=== PATIENT | male | born 1995 | race Caucasian/White ===

== ENCOUNTER 2021-04-26 02:33 | Emergency (ER) | payer BC, SELFPAY ==
[2021-04-26 02:34] VITALS: BP 130/83; PULSE 96; RESP 18; TEMP 37.4; O2SAT 97; BMI 40.4
--- NOTE | 2021-04-26 02:36 | RAD_ITS ---
EXAM: XR LEFT FOOT COMPLETE, 3 OR MORE VIEWS CLINICAL INDICATION: TRAUMA TRAUMA TECHNIQUE: Frontal, lateral and oblique views of the left foot. This report was created using meets report generation technology. COMPARISON: None. FINDINGS: BONES/JOINTS: There are foci of cortical discontinuity along the superior and medial aspects of the metaphysis of the distal phalanx of the first toe. There is questionable identification of fracture line extending to the articular surface at the interphalangeal joint. No sclerotic or destructive changes observed. SOFT TISSUES: Unremarkable. No soft tissue swelling or gas. No radiopaque foreign body. RAD/Foot min 3 Views IMPRESSION: Nondisplaced acute traumatic fracture through the medial corner of the distal phalanx of first toe, with intra-articular involvement at the interphalangeal joint. Electronically Signed: Omar Garcia MD at 3:07 EST Reading Location ID and State: [facility] / [place] , Service support ,
--- NOTE | 2021-04-26 03:39 | EX.ED.DYSGE1 ---
HPI History of Present Illness Chief Complaint: Lower Extremity Injury Narrative Narrative: Patient is a 25-year-old male who states he was hanging out with his friends when 1 fell and landed on his left foot. He states he had pain after the injury but reports he was able to go to bed but when he woke up and went to walk he noticed increased pain mainly in the left great toe. With concern he developed a fracture he presents for evaluation. Patient states he was barefoot at the time of injury and otherwise denies any other areas of injury. PFSH PFSH Medical History no medical history Home Medications hydrocodone-acetaminophen 1 tab PO Q6H PRN 3 Days #12 tab 04/26/21 [Rx Last Taken Unknown] Surgical History no surgical history Social History Smoking Status: Never smoker ROS ROS ED Constitutional Constitutional ED: Denies chills or fever(s) ENT ENT ED: Denies sore throat Cardiovascular Cardiovascular: Denies chest pain Respiratory/Chest Respiratory/Chest: Denies cough or dyspnea Gastrointestinal Gastrointestinal: Denies abdominal pain, diarrhea, nausea or vomiting Genitourinary Genitourinary ED: Denies dysuria Musculoskeletal Musculoskeletal: Reports other Details: Positive left foot pain ; Denies myalgias Integumentary Reports Abrasions; Denies rash Neurologic Neurologic: Denies headache(s) Hematologic/Lymphatic Hematologic/Lymphatic: Denies easy bleeding or easy bruising EXAM Physical Exam Const Vital Signs: 04/26/21 02:34 04/26/21 04:42 Temperature 99.4 F H Temperature Source Temporal Pulse Rate 96 78 Respiratory Rate 18 Blood Pressure 130/83 H 132/80 H Blood Pressure Mean 98 97 Pulse Ox 97 98 Oxygen Delivery Method Room Air Room Air Positive well nourished and well developed General Appearance ED: well developed Eyes PERRL and EOMs intact bilaterally Neck supple Resp normal respiratory effort and clear to auscultation bilaterally Cardio regular rate and regular rhythm Extremity Extremity Narrative: Left lower extremity is neurovascularly intact. Patient has soft tissue swelling with ecchymosis to the dorsal aspect of the left great toe. There is pain with palpation of the distal phalanx. No obvious bony deformity or joint effusion. No subungual hematoma noted. Remainder of the exam is normal Neuro oriented x3 and CN's II-XII intact bilaterally Sensorium / Orientation: alert Motor Exam: strength 5/5 throughout Psych mental status grossly normal Skin no rashes or lesions noted Skin Narrative: Soft tissue swelling ecchymosis to the left great toe as documented above MDM MDM MDM Narrative Medical decision making narrative: Patient presented to the ER with history and exam concerning for underlying bony injury. X-ray was obtained which did confirm a left great toe fracture. However the patient is closed and he is neurovascularly intact and he does not have any type of subungual hematoma. Therefore he can be given symptomatic care and discharged home and follow-up with podiatry to discuss need for any further treatment strategies. Radiography Diagnostic Testing: Clinical Impression(s) from Imaging Studies Foot X-Ray 04/26/21 02:36 IMPRESSION: Nondisplaced acute traumatic fracture through the medial corner of the distal phalanx of first toe, with intra-articular involvement at the interphalangeal joint. Electronically Signed: Omar Garcia MD at 3:07 EST Reading Location ID and State: [facility] / [place] , Service support , Discharge Plan Triage Chief Complaint: Lower Extremity Injury ED Provider: Edy Gutierrez Dx/Rx/DC Orders Clinical Impression: Closed fracture of left great toe Instructions: ED Fracture, Toe, Closed Prescriptions: New hydrocodone-acetaminophen 5-325 mg tablet 1 tab PO Q6H PRN (Reason: pain) 3 Days Qty: 12 RF: 0 Stand Alone Forms: ED Work / School Excuse Primary Care Provider: Care Physician,No Primary Referrals: Darren Roach DPM [STAFF PHYSICIAN] - 5-7 Days Care Physician,No Primary [Primary Care Provider] - Disposition Disposition: Home, Self Care Discharge Date/Time: 04/26/21 04:43
[2021-04-26] MEDS: HYDROcodone Bitartrate/Apap 5/325 Tablet PO (04:41)
[2021-04-26 04:42] VITALS: BP 132/80; PULSE 78; O2SAT 98
== END 2021-04-26 04:43 | disposition home or self-care (01) ==
PROVIDERS: Emergency Provider Emergency Medicine; Visit Provider Emergency Medicine
DX: S92.402A Displaced unspecified fracture of left great toe, initial encounter for closed fracture (principal); W19.XXXA Unspecified fall, initial encounter
CPT/HCPCS: 73630; 99284

== ENCOUNTER → 2023-01-27 | Outpatient (CLI) | payer OTHER, SELFPAY ==
--- NOTE | 2023-01-27 10:50 | MRI_ITS ---
HISTORY: HEARING LOSS, attention IACs Right Sided TECHNIQUE: Multiplanar and multisequence MR images of the brain and internal auditory canals were obtained before and after the intravenous administration of 29 mL Clariscan. 1758 images. COMPARISON: None. FINDINGS: BRAIN PARENCHYMA: No significant signal abnormality or enhancing lesion. No abnormal focus of restricted diffusion to suggest acute infarct. No acute intracranial hemorrhage identified. INTERNAL AUDITORY CANALS: Symmetric appearance of the fifth, seventh, and 8th cranial nerve complexes without enhancing mass. No cerebellopontine angle mass. CSF SPACES: Cerebral ventricles, cortical sulci, and other extra-axial CSF spaces within normal limits in size for age. No midline shift or other significant mass effect. No extra-axial fluid collection. VASCULAR SYSTEM: Major intracranial flow voids are maintained. OTHER: Symmetric orbital contents. No significant air fluid levels in the paranasal sinuses or mastoid air cells. MRI/Brain W/WO Contrast IMPRESSION: Unremarkable MRI of the brain and internal auditory canals. No evidence for enhancing intracranial mass or significant signal abnormality. Electronically Signed: Audrey Chase MD at 15:56 EST ,
== END | disposition home or self-care (01) ==
LOC: MRI 10:44
PROVIDERS: PCP Student in an Organized Health Care Education/Training Program; Referring Provider Otolaryngology; Visit Provider Otolaryngology
DX: H93.11 Tinnitus, right ear (principal); H90.41 Sensorineural hearing loss, unilateral, right ear, with unrestricted hearing on the contralateral side
CPT/HCPCS: 70553; A9575